=== PATIENT | male | born 1955 | race African-American/Black ===

== ENCOUNTER 2019-02-28 11:42 | Inpatient (IN) | payer OTHER ==
[2019-02-28 12:48] VITALS: BMI 23.6
--- NOTE | 2019-02-28 13:50 | HP ---
COWS - Scale Resting Pulse: 1= [place] 81-100 Sweatin= Chills/Flushing Restless Observation: 1= Difficult to Sit Still Pupil Size: 0= Normal to Room Light Bone or Joint Aches: 2= Severe Diffuse Aches Runny Nose/ Eye Tearin= Nasal Congestion GI Upset > 30mins: 1= Stomach Cramp Tremor Observation: 2= Slight Tremor Visible Yawning Observation: 2= >3x During Session Anxiety or Irritability: 1=Feels Anxious/Irritable Goose Flesh Skin: 0=Smooth Skin COWS Score: 12 CIWA Score Nausea/Vomitin-No Nausea/No Vomiting - Admission Criteria [facility] Guidelines: Admission for Medically Managed Detox: Requires at least one of the followin. CIWA greater than 12 2. Seizures within the past 24 hours 3. Delirium tremens within the past 24 hours 4. Hallucinations within the past 24 hours 5. Acute intervention needed for co occurring medical disorder 6. Acute intervention needed for co occurring psychiatric disorder 7. Severe withdrawal that cannot be handled at a lower level of care (continued vomiting, continued diarrhea, abnormal vital signs) requiring intravenous medication and/or fluids 8. Admission [facility] Chief Complaint: heroin and klonipin detox Allergies/Adverse Reactions: Allergies Allergy/AdvReac Type Severity Reaction Status Date / Time No Known Allergies Allergy Verified 02/28/19 12:35 History of Present Illness: Patient is a 64 yo M with a PMHx of necrosis of the femur, anxiety, here for heroin and clonipin detox. Has been doing heroin via inhalation for a year and a half. Denies IV drug use. Uses 10bags of heroin daily. Last use last night. 1 bag. Denies overdose, does not carry a narcan pen with him. Uses clonipin once every 2 weeks. (1mg). Currently employed w/ air conditioning. Lives in a private house with his cat. - Ebola screening Have you traveled outside of the country in the last 21 days: No Have you had contact with anyone from an Ebola affected area: No Do you have a fever: No Patient History - Smoking Cessation Smoking history: Current every day smoker Initiated information on smoking cessation: Yes 'Breaking Loose' booklet given: 02/28/19 - Substances abused Heroin Substance route: Inhalation Frequency: Daily Amount used: over a gram Age of first use: 54 Date of last use: 02/28/19 Benzodiazepine (Klonopin) Other (specify): 1mg Substance route: Oral Amount used: 3 tabs Age of first use: 60 Date of last use: 02/28/19 Alcohol Substance route: Oral Frequency: 1-2 times per week Amount used: 1 bottle wine Age of first use: 18 Date of last use: 02/27/19 Admission Physical Exam [facility] - Vital Signs Vital Signs: Vital Signs - 24 hr 02/28/19 12:34 Temperature 98.2 F Pulse Rate 87 Respiratory 18 Rate Blood Pressure 126/67 Cleared for Admission [facility] - Detox or Rehab [facility] Level of Care: Medically Managed Breathalyzer - Breathalyzer Breathalyzer: 0 Urine Drug Screen - Test Device Lot number: [id number] Expiration date: 11/12/20 - Control Is test valid?: Yes - Results Drug screen NEGATIVE: Yes Urine drug screen results: FEN-Fentanyl, MOP-Opiates, OXY-Oxycodone Inpatient Rehab Admission - Rehab Decision to Admit Inpatient rehab admission?: No
--- NOTE | 2019-02-28 14:08 | PN ---
Teaching Attending Note Name of Resident: Yonis Guy ATTENDING PHYSICIAN STATEMENT I saw and evaluated the patient. I reviewed the resident's note and discussed the case with the resident. I agree with the resident's findings and plan as documented. SUBJECTIVE: 64 yo with h/o heroin use disorder for the last 1 1/2 years, before that was getting Klonopin for pain, when this was stopped he started with heroin and street Klonopin. Uses Klonopin every 2 weeks, and daily heroin use. OBJECTIVE: Vital Signs - 24 hr 02/28/19 12:34 Temperature 98.2 F Pulse Rate 87 Respiratory 18 Rate Blood Pressure 126/67 tremulous alert and oriented ASSESSMENT AND PLAN: admit for heroin use disorder- methadone detox
[2019-02-28] MEDS ORDERED: MAGNESIUM HYDROX 2400MG/30ML ORAL SUSPENSION 30 ML CUP PO PRN (14:23)
[2019-02-28] MEDS ORDERED: ACETAMINOPHEN 325 MG TABLET (FP) PO PRN ×2 (14:23)
[2019-02-28] MEDS ORDERED: BISMUTH SUBSALICYLATE 524 MG/30 ML UD PO PRN (14:23)
[2019-02-28] MEDS ORDERED: MAG HYDROX/AL HYDROX/SIMETH 30 ML UNIT-DOSE CUP PO PRN (14:23)
[2019-02-28] MEDS ORDERED: IBUPROFEN 400 MG TABLET (FP) PO PRN (14:23)
[2019-02-28] MEDS ORDERED: MAGNESIUM CITRATE 300 ML BOTTLE PO PRN (14:23)
[2019-02-28] MEDS ORDERED: METHADONE HCL 10 MG TABLET (FOR DETOX USE ONLY) PO ONE (15:15)
[2019-02-28] MEDS: METHOCARBAMOL 500 MG TABLET PO PRN ×2 (15:28→22:28)
[2019-02-28 17:28] LABS: HEMATOCRIT 39.9 % (35.4-49); HEMOGLOBIN 12.7 GM/dL (11.7-16.9); MCH 28.6 pg (25.7-33.7); MCHC 31.8 g/dl (32.0-35.9); MEAN CELL VOLUME 89.9 fl (80-96); MEAN PLT VOLUME 10.8 fl (7.5-11.1); PLATELET COUNT 126 K/MM3 (134-434); RBC 4.43 M/mm3 (4.00-5.60); RDW 15.2 % (11.9-15.9); WHITE BLOOD COUNT 5.7 K/mm3 (4.0-10.0)
[2019-02-28 17:38] LABS: ALBUMIN 3.8 g/dl (3.4-5.0); BILIRUBIN,TOTAL 0.2 mg/dL (0.2-1); BLOOD UREA NITROGEN 24.9 mg/dL (7-18); CALCIUM 9.1 mg/dL (8.5-10.1); CREATININE 1.3 mg/dL (0.55-1.3); POTASSIUM 4.6 mmol/L (3.5-5.1); TOT PROT 6.8 g/dl (6.4-8.2)
[2019-02-28] MEDS: MENTHOL/PHENOL 1 EACH UD MM PRN (21:09)
[2019-02-28] MEDS ORDERED: P-EPHED 60MG/TRIPROLIDI 2.5MG TABLET PO PRN (21:54)
[2019-02-28] MEDS: THIAMINE HCL 100 MG TABLET (FP) PO SCH (22:28)
[2019-02-28] MEDS: cloNIDine HCL 0.1 MG TABLET PO PRN (22:28)
[2019-02-28] MEDS: MELATONIN 5 MG TABLETS PO PRN (22:28)
[2019-02-28] MEDS: hydrOXYzine PAMOATE 25 MG CAPSULE (FP) PO PRN (22:28)
[2019-03-01] MEDS ORDERED: METHADONE HCL 5 MG TABLET (FOR DETOX USE ONLY) ONE (09:54)
[2019-03-01] MEDS ORDERED: METHADONE HCL 10 MG TABLET (FOR DETOX USE ONLY) ONE (09:54)
[2019-03-01] MEDS ORDERED: METHADONE (DETOX) 20 MG, METHADONE (DETOX) 5 MG PO ONE (10:00)
[2019-03-01] MEDS: PRENATAL VITAMINS W/ FOLIC ACID TABLET (FP) PO SCH (10:24)
--- NOTE | 2019-03-01 11:03 | PN ---
S COWS - Scale Resting Pulse: 0= [place] 80 or Below Sweatin= No chills or Flushing Restless Observation: 1= Difficult to Sit Still Pupil Size: 1= Pupils >than Normal Bone or Joint Aches: 2= Severe Diffuse Aches Runny Nose/ Eye Tearin= Runny Nose/Eyes GI Upset > 30mins: 2= Nausea/Diarrhea Tremor Observation of Outstretched Hands: 2= Slight Tremor Visible Yawning Observation: 1= 1-2x During Session Anxiety or Irritability: 2=Irritable/Anxious Goose Flesh Skin: 0=Smooth Skin COWS Score: 13 S Progress Note (SOAP) Subjective: alert,irrtiable,anxious,interrupted sleep,tremor,pain in the body and back Objective: 03/01/19 11:00 Vital Signs Temperature 96.8 F L 03/01/19 09:14 Pulse Rate 47 L 03/01/19 09:14 Respiratory Rate 18 03/01/19 09:14 Blood Pressure 155/85 03/01/19 09:14 O2 Sat by Pulse Oximetry (%) Laboratory Last Values WBC 5.7 K/mm3 (4.0-10.0) 02/28/19 14:00 RBC 4.43 M/mm3 (4.00-5.60) 02/28/19 14:00 Hgb 12.7 GM/dL (11.7-16.9) 02/28/19 14:00 Hct 39.9 % (35.4-49) 02/28/19 14:00 MCV 89.9 fl (80-96) 02/28/19 14:00 MCH 28.6 pg (25.7-33.7) 02/28/19 14:00 MCHC 31.8 g/dl (32.0-35.9) L 02/28/19 14:00 RDW 15.2 % (11.9-15.9) 02/28/19 14:00 Plt Count 126 K/MM3 (134-434) L 02/28/19 14:00 MPV 10.8 fl (7.5-11.1) 02/28/19 14:00 Sodium 143 mmol/L (136-145) 02/28/19 14:00 Potassium 4.6 mmol/L (3.5-5.1) 02/28/19 14:00 Chloride 115 mmol/L (98-107) H 02/28/19 14:00 Carbon Dioxide 21 mmol/L (21-32) 02/28/19 14:00 Anion Gap 8 MMOL/L (8-16) 02/28/19 14:00 BUN 24.9 mg/dL (7-18) H 02/28/19 14:00 Creatinine 1.3 mg/dL (0.55-1.3) 02/28/19 14:00 Est GFR (CKD-EPI)AfAm 67.78 02/28/19 14:00 Est GFR (CKD-EPI)NonAf 58.48 02/28/19 14:00 Random Glucose 95 mg/dL (74-106) 02/28/19 14:00 Calcium 9.1 mg/dL (8.5-10.1) 02/28/19 14:00 Total Bilirubin 0.2 mg/dL (0.2-1) 02/28/19 14:00 AST 31 U/L (15-37) 02/28/19 14:00 ALT 38 U/L (13-61) 02/28/19 14:00 Alkaline Phosphatase 127 U/L (45-117) H 02/28/19 14:00 Total Protein 6.8 g/dl (6.4-8.2) 02/28/19 14:00 Albumin 3.8 g/dl (3.4-5.0) 02/28/19 14:00 Assessment: 03/01/19 11:01 withdrawal symptom Plan: continue detox methadone regimen,bun 24.9,probably dehydration,encourage oral fluid,
[2019-03-01] MEDS: hydrOXYzine PAMOATE 25 MG CAPSULE (FP) PO PRN (22:16)
[2019-03-01] MEDS: cloNIDine HCL 0.1 MG TABLET PO PRN (22:16)
[2019-03-01] MEDS: THIAMINE HCL 100 MG TABLET (FP) PO SCH (22:16)
[2019-03-01] MEDS: MELATONIN 5 MG TABLETS PO PRN (22:17)
[2019-03-02] MEDS: diazePAM 5 MG TABLET PO PRN ×2 (08:52→13:19)
[2019-03-02] MEDS ORDERED: METHADONE HCL 10 MG TABLET (FOR DETOX USE ONLY) PO ONE (10:00)
[2019-03-02] MEDS: PRENATAL VITAMINS W/ FOLIC ACID TABLET (FP) PO SCH (10:19)
--- NOTE | 2019-03-02 14:54 | PN ---
BHS COWS - Scale Resting Pulse: 0= [place] 80 or Below Sweatin= Chills/Flushing Restless Observation: 0= Sits Still Pupil Size: 0= Normal to Room Light Bone or Joint Aches: 1= Mild Discomfort Runny Nose/ Eye Tearin= Nasal Congestion GI Upset > 30mins: 1= Stomach Cramp Tremor Observation of Outstretched Hands: 2= Slight Tremor Visible Yawning Observation: 2= >3x During Session Anxiety or Irritability: 2=Irritable/Anxious Goose Flesh Skin: 0=Smooth Skin COWS Score: 10 S Progress Note (SOAP) Subjective: doing well with methadone detox regimen less body aches mild tremor trouble to fall asleep Objective: 03/02/19 14:53 Vital Signs Temperature 99.5 F 03/02/19 13:07 Pulse Rate 51 L 03/02/19 13:07 Respiratory Rate 18 03/02/19 13:07 Blood Pressure 147/91 03/02/19 13:07 O2 Sat by Pulse Oximetry (%) Laboratory Last Values WBC 5.7 K/mm3 (4.0-10.0) 02/28/19 14:00 RBC 4.43 M/mm3 (4.00-5.60) 02/28/19 14:00 Hgb 12.7 GM/dL (11.7-16.9) 02/28/19 14:00 Hct 39.9 % (35.4-49) 02/28/19 14:00 MCV 89.9 fl (80-96) 02/28/19 14:00 MCH 28.6 pg (25.7-33.7) 02/28/19 14:00 MCHC 31.8 g/dl (32.0-35.9) L 02/28/19 14:00 RDW 15.2 % (11.9-15.9) 02/28/19 14:00 Plt Count 126 K/MM3 (134-434) L 02/28/19 14:00 MPV 10.8 fl (7.5-11.1) 02/28/19 14:00 Sodium 143 mmol/L (136-145) 02/28/19 14:00 Potassium 4.6 mmol/L (3.5-5.1) 02/28/19 14:00 Chloride 115 mmol/L (98-107) H 02/28/19 14:00 Carbon Dioxide 21 mmol/L (21-32) 02/28/19 14:00 Anion Gap 8 MMOL/L (8-16) 02/28/19 14:00 BUN 24.9 mg/dL (7-18) H 02/28/19 14:00 Creatinine 1.3 mg/dL (0.55-1.3) 02/28/19 14:00 Est GFR (CKD-EPI)AfAm 67.78 02/28/19 14:00 Est GFR (CKD-EPI)NonAf 58.48 02/28/19 14:00 Random Glucose 95 mg/dL (74-106) 02/28/19 14:00 Calcium 9.1 mg/dL (8.5-10.1) 02/28/19 14:00 Total Bilirubin 0.2 mg/dL (0.2-1) 02/28/19 14:00 AST 31 U/L (15-37) 02/28/19 14:00 ALT 38 U/L (13-61) 02/28/19 14:00 Alkaline Phosphatase 127 U/L (45-117) H 02/28/19 14:00 Total Protein 6.8 g/dl (6.4-8.2) 02/28/19 14:00 Albumin 3.8 g/dl (3.4-5.0) 02/28/19 14:00 RPR Titer Nonreactive (NONREACTIVE) 02/28/19 14:00 HIV 1&2 Antibody Screen Negative 03/01/19 08:00 HIV P24 Antigen Negative 03/01/19 08:00 TB (QFT) Incubation (.) 02/28/19 14:00 TB Test (QFT) Nil 0.06 IU/mL (.) 02/28/19 14:00 TB Test (QFT) Mitogen >10.00 IU/mL (.) 02/28/19 14:00 TB Test (QFT) Antigen 3.12 IU/mL (.) 02/28/19 14:00 TB Test (QFT) Positive (Negative) H 02/28/19 14:00 TB Positive Criteria (.) 02/28/19 14:00 lab noted positive ppd chest x ray rule out tb patient is asymptomatic 03/02/19 14:55 Assessment: 03/02/19 14:56 opiate withdrawal sx Plan: continue methadone detox regimen
[2019-03-02] MEDS: cloNIDine HCL 0.1 MG TABLET PO PRN (22:17)
[2019-03-02] MEDS: METHOCARBAMOL 500 MG TABLET PO PRN (22:17)
[2019-03-02] MEDS: MELATONIN 5 MG TABLETS PO PRN (22:17)
[2019-03-02] MEDS: THIAMINE HCL 100 MG TABLET (FP) PO SCH (22:17)
[2019-03-03] MEDS ORDERED: METHADONE HCL 10 MG TABLET (FOR DETOX USE ONLY) ONE (09:37)
[2019-03-03] MEDS ORDERED: METHADONE HCL 5 MG TABLET (FOR DETOX USE ONLY) ONE (09:37)
--- NOTE | 2019-03-03 09:51 | PN ---
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 Objective: 03/03/19 09:52 Vital Signs Temperature 97.7 F 03/03/19 09:21 Pulse Rate 60 03/03/19 09:21 Respiratory Rate 20 03/03/19 09:21 Blood Pressure 121/84 03/03/19 09:21 O2 Sat by Pulse Oximetry (%) Laboratory Last Values WBC 5.7 K/mm3 (4.0-10.0) 02/28/19 14:00 RBC 4.43 M/mm3 (4.00-5.60) 02/28/19 14:00 Hgb 12.7 GM/dL (11.7-16.9) 02/28/19 14:00 Hct 39.9 % (35.4-49) 02/28/19 14:00 MCV 89.9 fl (80-96) 02/28/19 14:00 MCH 28.6 pg (25.7-33.7) 02/28/19 14:00 MCHC 31.8 g/dl (32.0-35.9) L 02/28/19 14:00 RDW 15.2 % (11.9-15.9) 02/28/19 14:00 Plt Count 126 K/MM3 (134-434) L 02/28/19 14:00 MPV 10.8 fl (7.5-11.1) 02/28/19 14:00 Sodium 143 mmol/L (136-145) 02/28/19 14:00 Potassium 4.6 mmol/L (3.5-5.1) 02/28/19 14:00 Chloride 115 mmol/L (98-107) H 02/28/19 14:00 Carbon Dioxide 21 mmol/L (21-32) 02/28/19 14:00 Anion Gap 8 MMOL/L (8-16) 02/28/19 14:00 BUN 24.9 mg/dL (7-18) H 02/28/19 14:00 Creatinine 1.3 mg/dL (0.55-1.3) 02/28/19 14:00 Est GFR (CKD-EPI)AfAm 67.78 02/28/19 14:00 Est GFR (CKD-EPI)NonAf 58.48 02/28/19 14:00 Random Glucose 95 mg/dL (74-106) 02/28/19 14:00 Calcium 9.1 mg/dL (8.5-10.1) 02/28/19 14:00 Total Bilirubin 0.2 mg/dL (0.2-1) 02/28/19 14:00 AST 31 U/L (15-37) 02/28/19 14:00 ALT 38 U/L (13-61) 02/28/19 14:00 Alkaline Phosphatase 127 U/L (45-117) H 02/28/19 14:00 Total Protein 6.8 g/dl (6.4-8.2) 02/28/19 14:00 Albumin 3.8 g/dl (3.4-5.0) 02/28/19 14:00 RPR Titer Nonreactive (NONREACTIVE) 02/28/19 14:00 HIV 1&2 Antibody Screen Negative 03/01/19 08:00 HIV P24 Antigen Negative 03/01/19 08:00 TB (QFT) Incubation (.) 02/28/19 14:00 TB Test (QFT) Nil 0.06 IU/mL (.) 02/28/19 14:00 TB Test (QFT) Mitogen >10.00 IU/mL (.) 02/28/19 14:00 TB Test (QFT) Antigen 3.12 IU/mL (.) 02/28/19 14:00 TB Test (QFT) Positive (Negative) H 02/28/19 14:00 TB Positive Criteria (.) 02/28/19 14:00 03/03/19 09:53 lab noted positive QFT chest x ray result pending Assessment: 03/03/19 09:53 opiate withdrawal sx Plan: continue methadone detox
[2019-03-03] MEDS ORDERED: METHADONE (DETOX) 10 MG, METHADONE (DETOX) 5 MG PO ONE (10:00)
[2019-03-03] MEDS: PRENATAL VITAMINS W/ FOLIC ACID TABLET (FP) PO SCH (10:20)
[2019-03-03] MEDS: THIAMINE HCL 100 MG TABLET (FP) PO SCH (22:11)
[2019-03-03] MEDS: diazePAM 5 MG TABLET PO PRN (22:11)
[2019-03-03] MEDS: guaiFENesin 200 MG/10 ML 10 ML UNIT-DOSE CUPS PO PRN (22:12)
[2019-03-03] MEDS: MELATONIN 5 MG TABLETS PO PRN (22:12)
[2019-03-04] MEDS ORDERED: METHADONE HCL 10 MG TABLET (FOR DETOX USE ONLY) PO ONE (10:00)
[2019-03-04] MEDS: PRENATAL VITAMINS W/ FOLIC ACID TABLET (FP) PO SCH (10:18)
[2019-03-04] MEDS: MENTHOL/PHENOL 1 EACH UD MM PRN (10:19)
--- NOTE | 2019-03-04 17:19 | PN ---
BHS COWS - Scale Resting Pulse: 0= [place] 80 or Below Sweatin= No chills or Flushing Restless Observation: 1= Difficult to Sit Still Pupil Size: 0= Normal to Room Light Bone or Joint Aches: 0= None Runny Nose/ Eye Tearin= None GI Upset > 30mins: 0= None Tremor Observation of Outstretched Hands: 0= None Yawning Observation: 1= 1-2x During Session Anxiety or Irritability: 0= None Goose Flesh Skin: 0=Smooth Skin COWS Score: 2 BHS Progress Note (SOAP) Subjective: Patient denies current Withdrawal / Detox symptoms and reports that he feels well overall at this time. Objective: PATIENT A & O X 3, OBSERVED AMBULATING ON DETOX UNIT UNASSISTED. IN NO ACUTE DISTRESS. 03/04/19 17:14 Vital Signs Temperature 97.4 F L 03/04/19 14:56 Pulse Rate 66 03/04/19 14:56 Respiratory Rate 16 03/04/19 14:56 Blood Pressure 122/81 03/04/19 14:56 O2 Sat by Pulse Oximetry (%) Laboratory Tests 02/28/19 02/28/19 02/28/19 14:00 14:00 14:00 WBC 5.7 RBC 4.43 Hgb 12.7 Hct 39.9 MCV 89.9 MCH 28.6 MCHC 31.8 L RDW 15.2 Plt Count 126 L MPV 10.8 Sodium 143 Potassium 4.6 Chloride 115 H Carbon Dioxide 21 Anion Gap 8 BUN 24.9 H Creatinine 1.3 Est GFR (CKD-EPI)AfAm 67.78 Est GFR (CKD-EPI)NonAf 58.48 Random Glucose 95 Calcium 9.1 Total Bilirubin 0.2 AST 31 ALT 38 Alkaline Phosphatase 127 H Total Protein 6.8 Albumin 3.8 RPR Titer Nonreactive HIV 1&2 Antibody Screen HIV P24 Antigen TB (QFT) Incubation TB Test (QFT) Nil TB Test (QFT) Mitogen TB Test (QFT) Antigen TB Test (QFT) TB Positive Criteria 02/28/19 03/01/19 14:00 08:00 WBC RBC Hgb Hct MCV MCH MCHC RDW Plt Count MPV Sodium Potassium Chloride Carbon Dioxide Anion Gap BUN Creatinine Est GFR (CKD-EPI)AfAm Est GFR (CKD-EPI)NonAf Random Glucose Calcium Total Bilirubin AST ALT Alkaline Phosphatase Total Protein Albumin RPR Titer HIV 1&2 Antibody Screen Negative HIV P24 Antigen Negative TB (QFT) Incubation TB Test (QFT) Nil 0.06 TB Test (QFT) Mitogen >10.00 TB Test (QFT) Antigen 3.12 TB Test (QFT) Positive H TB Positive Criteria LABS NOTED. RESULTS OF CXR (DONE FOR POSITIVE RESULT ON DETOX ADMISSION TB /QFT TEST) NOTED. NO INFILTRATE NOTED ON REPORT. 03/04/19 17:16 Assessment: 03/04/19 17:15 WITHDRAWAL SYMPTOMS. THROMBOCYTOPENIA. ELEVATED ALK. PHOS. LEVEL. AZOTEMIA. Plan: CONTINUE DETOX. INCREASE DAILY PO WATER INTAKE. PATIENT SCHEDULED FOR D/C FROM DETOX UNIT TOMORROW.
[2019-03-04] MEDS: THIAMINE HCL 100 MG TABLET (FP) PO SCH (22:12)
[2019-03-04] MEDS: METHOCARBAMOL 500 MG TABLET PO PRN (22:12)
[2019-03-04] MEDS: MELATONIN 5 MG TABLETS PO PRN (22:12)
[2019-03-05] MEDS: guaiFENesin 200 MG/10 ML 10 ML UNIT-DOSE CUPS PO PRN
[2019-03-05] MEDS ORDERED: METHADONE HCL 5 MG TABLET (FOR DETOX USE ONLY) PO ONE (06:00)
[2019-03-05 06:08] VITALS: BP 150/81; PULSE 47; TEMP 98
--- NOTE | 2019-03-05 18:11 | DS ---
[facility] Detox Discharge Summary Admission Date: 02/28/19 Discharge Date: 03/05/19 - History Present History: Alcohol Dependence, Opioid Dependence, Sedative Dependence Additional Comments: PATIENT RETURNING HOME, WILL ATTEND LOCAL OUTPATIENT 12-STEP / NA / AA SUPPORT GROUP PROGRAM IN HOSPITAL NEAR WHERE HE LIVES. PATIENT WAS DISCHARGED FORM DETOX UNIT IN STABLE MEDICAL CONDITION. Pertinent Past History: Azotemia, Elevated Alkaline Phosphatase Level, Positive QFT / TB Test Result, Thrombocytopenia. - Physical Exam Results Vital Signs: Vital Signs Temperature 98 F 03/05/19 06:07 Pulse Rate 47 L 03/05/19 06:07 Respiratory Rate 18 03/05/19 06:07 Blood Pressure 150/81 03/05/19 06:07 O2 Sat by Pulse Oximetry (%) Pertinent Admission Physical Exam Findings: WITHDRAWAL SYMPTOMS. Laboratory Tests 02/28/19 02/28/19 02/28/19 14:00 14:00 14:00 WBC 5.7 RBC 4.43 Hgb 12.7 Hct 39.9 MCV 89.9 MCH 28.6 MCHC 31.8 L RDW 15.2 Plt Count 126 L MPV 10.8 Sodium 143 Potassium 4.6 Chloride 115 H Carbon Dioxide 21 Anion Gap 8 BUN 24.9 H Creatinine 1.3 Est GFR (CKD-EPI)AfAm 67.78 Est GFR (CKD-EPI)NonAf 58.48 Random Glucose 95 Calcium 9.1 Total Bilirubin 0.2 AST 31 ALT 38 Alkaline Phosphatase 127 H Total Protein 6.8 Albumin 3.8 RPR Titer Nonreactive HIV 1&2 Antibody Screen HIV P24 Antigen TB (QFT) Incubation TB Test (QFT) Nil TB Test (QFT) Mitogen TB Test (QFT) Antigen TB Test (QFT) TB Positive Criteria 02/28/19 03/01/19 14:00 08:00 WBC RBC Hgb Hct MCV MCH MCHC RDW Plt Count MPV Sodium Potassium Chloride Carbon Dioxide Anion Gap BUN Creatinine Est GFR (CKD-EPI)AfAm Est GFR (CKD-EPI)NonAf Random Glucose Calcium Total Bilirubin AST ALT Alkaline Phosphatase Total Protein Albumin RPR Titer HIV 1&2 Antibody Screen Negative HIV P24 Antigen Negative TB (QFT) Incubation TB Test (QFT) Nil 0.06 TB Test (QFT) Mitogen >10.00 TB Test (QFT) Antigen 3.12 TB Test (QFT) Positive H TB Positive Criteria LABS NOTED. - Treatment Hospital Course: Detox Protocol Followed, Detoxed Safely, Responded well, Discharged Condition Good Patient has Accepted a Rehab Referral to: PT. WILL ATTEND LOCAL 12-STEP/NA/AA OUTPATIENT SUPPORT GROUP MEETING. - Medication Discharge Medications: Ambulatory Orders Naloxone HCl [Narcan] 4 mg NS ASDIR PRN #1 spray 03/03/19 - Diagnosis (1) Opioid dependence with withdrawal Status: Acute (2) Azotemia Status: Acute (3) Elevated alkaline phosphatase level Status: Acute (4) Positive PPD Status: Acute (5) Thrombocytopenia Status: Acute (6) Uncomplicated alcohol dependence Status: Chronic (7) Sedative, hypnotic or anxiolytic dependence, uncomplicated Status: Chronic - AMA Did Patient Leave Against Medical Advice: No BHS COWS - Scale Resting Pulse: 0= [place] 80 or Below Sweatin= No chills or Flushing Restless Observation: 1= Difficult to Sit Still Pupil Size: 0= Normal to Room Light Bone or Joint Aches: 0= None Runny Nose/ Eye Tearin= None GI Upset > 30mins: 0= None Tremor Observation of Outstretched Hands: 0= None Yawning Observation: 0= None Anxiety or Irritability: 2=Irritable/Anxious Goose Flesh Skin: 0=Smooth Skin COWS Score: 3
== END 2019-03-05 10:29 | disposition home or self-care (01) | DRG 897 ==
LOC: YASAS 11:42 → Y3N 14:53
PROVIDERS: ADMIT Surgery; ATTEND Surgery
PROC: HZ2ZZZZ Detoxification Services for Substance Abuse Treatment (ICD-10-PCS; principal; 2019-02-28)
DX: F10.230 Alcohol dependence with withdrawal, uncomplicated (principal); F11.23 Opioid dependence with withdrawal; F13.230 Sedative, hypnotic or anxiolytic dependence with withdrawal, uncomplicated; D69.6 Thrombocytopenia, unspecified; R79.89 Other specified abnormal findings of blood chemistry; R94.5 Abnormal results of liver function studies; R76.11 Nonspecific reaction to tuberculin skin test without active tuberculosis
CPT/HCPCS: 36415; 71046-TC-FY; 80053; 85027; 86480; 86593; 87389; J0735